=== PATIENT | female | born 1995 | race Caucasian/White ===

== ENCOUNTER 2020-06-07 14:47 | Emergency (ER) | payer OTHER ==
[~2020-06-07] VITALS: Ht 175.3 cm; Wt 98.9 kg
[~2020-06-07 14:47] MED LIST: BIRTH CONTROL; MOTION RELIEF25 MG PO
[2020-06-07] MEDS ORDERED: SERTRALINE HCL25 MG PO (15:03)
[2020-06-07] MEDS ORDERED: HYDROXYZINE HCL25 M2 PO (15:03)
[2020-06-07 15:31] LABS: ABSOLUTE EOSINOPHILS 0.2 thou/uL (0.0-0.7); ABSOLUTE LYMPHOCYTES 3.5 thou/uL (0.8-5.3); ABSOLUTE MONOCYTES 0.7 thou/uL (0.0-1.2); ABSOLUTE NEUTROPHILS 6.8 thou/uL (1.6-8.1); BASOPHILS 0.4 %; EOSINOPHILS 1.6 %; HEMATOCRIT 37.6 % (37.0-47.0); HEMOGLOBIN 12.4 gm/dL (12.0-15.0); LYMPHOCYTES 31.2 %; MCH 29.2 pg (26.0-34.0); MCHC 32.9 g/dL (28.0-37.0); MCV 88.7 fL (80.0-100.0); MONOCYTES 5.9 %; NUCLEATED RBCS 0 /100WBC; PLATELET COUNT* 302 thou/uL (150-400); POLYS 60.9 %; RBC 4.24 mil/uL (4.20-5.00); RDW-CV 12.5 % (10.5-14.5); WBC 11.1 thou/uL (4.0-11.0)
[2020-06-07 15:31] LABS: INFLUENZA A ANTIGEN Negative (Negative); INFLUENZA B ANTIGEN Negative (Negative)
[2020-06-07 15:40] LABS: CALCIUM 9.4 mg/dL (8.5-10.1); CREATININE 0.7 mg/dL (0.6-1.3)
[2020-06-07 15:44] LABS: ALBUMIN 3.6 g/dL (3.4-5.0); TOTAL BILIRUBIN 0.2 mg/dL (<0.1-1.0); TOTAL PROTEIN 7.6 g/dL (6.4-8.2)
[2020-06-07 17:51] VITALS: BP 141/77
--- NOTE | 2020-06-09 13:17 | EKG ---
[place] [address] ELECTROCARDIOGRAM REPORT Name: AGATATAMIKO Room: [facility]#: [id number] Admission: 06/07/20 Attend Phys: Discharge: 06/07/20 Date of : 89 Date of Service: 06/07/20 1500 Report #: [id number] THIS REPORT FOR: //name// [facility] ED Test Date: 2020-06-07 Test Time: 15:00:13 Pat Name: TAMIKO PARMAR Department: Room: Gender: [employer] Clerk: CHRISTINE : 1995 Requested By: Olinda Garcia Order Number: [id number] Anne MD: Rick Garcia Measurements Intervals [place] Rate: 96 P: 77 MS: 149 QRS: 73 QRSD: 88 T: 25 QT: 349 QTc: 441 Interpretive Statements Sinus rhythm No previous ECG available for comparison Electronically Signed On 06-09-2020 13:17:36 FISHER QUAHOG by Rick Garcia [email or web address] <ELECTRONICALLY SIGNED> By: Rick Garcia MD, [facility] 06/09/20 1317 1500 1500 Rick Garcia MD, FACC /EPI
== END 2020-06-07 17:51 | disposition home or self-care (01) ==
LOC: M.ERS 14:47
PROVIDERS: Family Medicine; Nurse Practitioner Family
DX: B34.9 Viral infection, unspecified (principal); R07.89 Other chest pain; Z20.828 Contact with and (suspected) exposure to other viral communicable diseases; R19.7 Diarrhea, unspecified